=== PATIENT | male | born 1990 | race Caucasian/White ===

== ENCOUNTER 2025-04-01 10:29 | Emergency (ER) | payer MEDICAID, SELFPAY ==
[2025-04-01 10:39] VITALS: BP 141/89; PULSE 97; RESP 18; TEMP 37; O2SAT 97; BMI 21.4
--- NOTE | 2025-04-01 10:51 | PD.EDMEDCL ---
ED Medical Clearance RME/HPI General Chief complaint: Medical Clearance Stated complaint: MEDICAL CLEARANCE Time Seen by Provider: 04/01/25 10:46 Arrival date/time: 04/01/25 10:29 35-year-old male presents to the emergency department today in the custody of the [employer] per officer patient was sent here because he was falling asleep while in intake at long term Limitations: no limitations Related Information Allergies Allergy/AdvReac Type Severity Reaction Status Date / Time No Known Drug Allergies Allergy Unknown Verified 11/21/13 00:49 Review of Systems Review of Systems Systems Reviewed: All systems reviewed, normal except as documented Constitutional Constitutional: Reports system reviewed and no additional complaints, except as documented, Denies fever(s) and Denies headache(s) Eyes Eyes: Reports system reviewed and no additional complaints, except as documented and Denies blurry vision ENT Ears, Nose, Mouth, and Throat: Reports system reviewed and no additional complaints, except as documented, Denies headache(s), Denies nasal congestion and Denies nasal discharge Cardiovascular Cardiovascular: Reports system reviewed and no additional complaints, except as documented, Denies chest pain and Denies dyspnea Respiratory Respiratory: Reports system reviewed and no additional complaints, except as documented, Denies chest congestion, Denies cough and Denies dyspnea Gastrointestinal Gastrointestinal: Reports system reviewed and no additional complaints, except as documented and Denies abdominal pain Integumentary/Breasts Skin/Breast: Reports system reviewed and no additional complaints, except as documented and Denies rash Neurologic Neurologic: Reports system reviewed and no additional complaints, except as documented, Reports as per HPI and Denies headache(s) Past Medical History Past Medical History CARDIAC: Negative Congestive Heart Failure RESPIRATORY: Negative Chronic Obstructive Pulmonary Disease (COPD) GENITOURINARY: Negative Renal Disease ENDOCRINE: Negative Diabetes Mellitus Type 1 or Diabetes Mellitus Type 2 Social History SMOKING STATUS: Current every day smoker ED Exam General Limitations: Present no limitations General appearance: Present alert and in no apparent distress Head Head exam: Present atraumatic Eye Eye exam: Present normal appearance, PERRL and EOMI ENT ENT exam: Present normal exam, normal oropharynx and mucous membranes moist Neck Neck exam: Present normal inspection, full ROM and trachea midline Chest Chest inspection: Present normal inspection and symmetric chest wall rise Respiratory Respiratory exam: Present normal lung sounds bilaterally Cardiovascular Cardiovascular exam: Present regular rate, normal rhythm and normal heart sounds Abdominal Exam Abdominal exam: Present soft and normal bowel sounds Extremities Exam Extremities exam: Present normal inspection and full ROM Back Exam Back exam: Present normal inspection and full ROM Neurological Exam Neurological exam: Present alert, oriented X3, CN II-XII intact, normal gait and reflexes normal; Absent motor sensory deficit Psychiatric Psychiatric exam: Present normal affect and normal mood; Absent depressed, agitated, anxious, flat affect, manic, homicidal ideation or suicidal ideation Skin Skin exam: Present warm, dry, intact and normal color Course Quality Measures none Vital Signs Vital signs: Vital Signs Temperature 98.6 F 04/01/25 10:39 Pulse Rate 97 04/01/25 10:39 Respiratory Rate 18 04/01/25 10:39 Blood Pressure 141/89 H 04/01/25 10:39 Pulse Oximetry (%) 97 04/01/25 10:39 Oxygen Delivery Method Room Air 04/01/25 10:39 Medical Clearance MDM Narrative MDM Narrative:: 35-year-old male presents to the emergency department today in the custody of the [employer] [employer] per officer patient was sent here because he was falling asleep while in intake at long term Per the officer's had the patient in custody since 830 this morning Patient reports has not used heroin since yesterday I asked the patient if he would like Narcan emphatically he stated no Currently patient GCS 15 answers all questions appropriately walks with steady gait vital signs are normal Patient was given food and drink which he ate and drink while he was here Time reevaluation patient is a GCS of 15 Consultation: I have my attending physician to evaluate patient who felt the patient be discharged to long term at this time As the patient is a GCS of 15 walks with steady gait answers all questions appropriately and is without difficulty patient be discharged to long term Patient data External records reviewed:: [facility] previous records Clinical information provided by:: patient Social determinants that could affect healthcare access:: substance use Patient has the following chronic illnesses:: Alcohol and substance abuse How is presenting disease/condition affected by chronic disease/condition?: caused by Evaluation data The following diagnostics were reviewed and interpreted by me:: other (specify) Lab and/or radiology exams considered but not ordered:: Considered not ordered Interpretation Summary: N/A Medications / Prescriptions Medications or Prescriptions considered but not ordered:: Given no meds Medication administrations:: No meds Consultations Consultation(s) initiated? (list below): No Diagnosis Medical Clearance Differential Diagnosis: other (Medical clearance for incarceration) Most likely diagnosis given after review of the tests above:: Heroin abuse alcohol abuse Admission Indicated Admission indicated?: not indicated Admission Request Was there a request for admission?: No Disposition Plan Disposition Plan: Discharge Discharge Attestation Discharge Attestation: The patient and all family members were given an opportunity to ask questions and understood the discharge instructions. Discharge instructions specifically effects, indications for sooner follow up or return to the emergency department, and the expected course of current diagnosis. Patient condition: Stable Discharge Plan Plan Patient Disposition: Snf/Court/Law Discharge Disposition comment: Stable Problem List Clinical Impression: Heroin abuse Patient/Caregiver Discharge Instructions Education Materials: Opioid Use Risks Additional Instructions: Please follow up with your primary care doctor in the next 24-48hrs for any worsening symptoms return here immediately Please refrain from all alcohol and drug abuse as it can kill you Print Language: Frisian SONAM/YOLA Supervising Physician SONAM/YOLA Supervising Physician: dr velez
--- NOTE | 2025-04-01 11:27 | PC.NURSE ---
Patient alert and oriented x4. Patient easily arousable from sleep. patient consumed sandwich, peanut butter and jelly lo crackers and 720ml of juice.
== END 2025-04-01 11:30 ==
LOC: SERX 11:47
PROVIDERS: Emergency Provider Nurse Practitioner Primary Care; PCP Family Medicine
DX: Z02.89 Encounter for other administrative examinations (principal); F11.10 Opioid abuse, uncomplicated
CPT/HCPCS: 99281

== ENCOUNTER 2025-05-13 17:59 | Emergency (ER) | payer MEDICAID, SELFPAY ==
[2025-05-13 18:17] VITALS: PULSE 134; RESP 18; O2SAT 100; BMI 23.6
[2025-05-13 18:28] VITALS: BP 153/85; PULSE 110; RESP 18; TEMP 36.7; O2SAT 100
--- NOTE | 2025-05-13 19:05 | EDNOTE_ITS ---
ED Overdose RME/HPI General Chief Complaint: Overdose Stated Complaint: OVERDOSE Time Seen by Provider: 05/13/25 19:02 Source: patient and EMS Arrival date/time: 05/13/25 17:59 Mode of arrival: EMS Limitations: no limitations RME / HPI complaint: accidental overdose RME / HPI Narrative: This patient is a 35-year-old male who is brought in by EMS due to OD on fentanyl. Patient believes he was utilizing heroin and accidentally took fentanyl. Patient received Narcan in the field when EMS arrived and at time of our evaluation, patient was asymptomatic and states he had no complaints. Patient was mildly hypertensive and tachycardic at arrival. Related Data Allergies Allergy/AdvReac Type Severity Reaction Status Date / Time bee venom protein (honey bee) Allergy Severe Swelling Verified 05/13/25 18:28 of Lip/Tongue/Throat No Known Drug Allergies Allergy Unknown Verified 11/21/13 00:49 Review of Systems Review of Systems Systems Reviewed: All systems reviewed, normal except as documented Past Medical History Past Medical History CARDIAC: Negative Congestive Heart Failure RESPIRATORY: Negative Chronic Obstructive Pulmonary Disease (COPD) GENITOURINARY: Negative Renal Disease ENDOCRINE: Negative Diabetes Mellitus Type 1 or Diabetes Mellitus Type 2 PSYCHO/SOCIAL: Positive Recreational Drug Use Social History SMOKING STATUS: Current some day smoker ED Exam Narrative Physical exam: Patient appeared to be in poor overall health due to extensive illicit drug use. Patient had no complaints and vital signs were reasonable at time of evaluation. General Limitations: Present no limitations General appearance: Present alert Head Head exam: Present atraumatic Eye Eye exam: Present normal appearance, PERRL and EOMI ENT ENT exam: Present normal exam, normal oropharynx and mucous membranes moist Neck Neck exam: Present normal inspection, full ROM and trachea midline Chest Chest inspection: Present normal inspection and symmetric chest wall rise Respiratory Respiratory exam: Present normal lung sounds bilaterally Cardiovascular Cardiovascular exam: Present regular rate, normal rhythm and normal heart sounds Abdominal Exam Abdominal exam: Present soft and normal bowel sounds Extremities Exam Extremities exam: Present normal inspection and full ROM Back Exam Back exam: Present normal inspection and full ROM Neurological Exam Neurological exam: Present alert, oriented X3 and CN II-XII intact Psychiatric Psychiatric exam: Present normal affect and normal mood Skin Skin exam: Present warm, dry, intact and normal color Course Quality Measures none Vital Signs Vital signs: Vital Signs Temperature 98.0 F 12/25/25 18:28 Pulse Rate 110 H 05/13/25 18:28 Respiratory Rate 18 05/13/25 18:28 Blood Pressure 153/85 H 05/13/25 18:28 Pulse Oximetry (%) 100 05/13/25 18:28 Oxygen Delivery Method Room Air 05/13/25 18:28 As noted above Overdose MDM Narrative MDM Narrative:: Spent extensive time discussing the patient's arrival and drug abuse past with the patient. Advised ceasing all illicit drug use immediately and following up with a support group such as Narcotics Anonymous. Advise good hydration and healthy nutrition throughout. Patient is safe for discharge. Patient data External records reviewed:: [facility] previous records Clinical information provided by:: patient Social determinants that could affect healthcare access:: substance use Patient has the following chronic illnesses:: Illicit drug abuse How is presenting disease/condition affected by chronic disease/condition?: caused by Evaluation data The following diagnostics were reviewed and interpreted by me:: other (specify) (None) Lab and/or radiology exams considered but not ordered:: None Interpretation Summary: None Medications / Prescriptions Medications or Prescriptions considered but not ordered:: None Medication administrations:: None Consultations Consultation(s) initiated? (list below): No Diagnosis Overdose Differential Diagnosis: drug overdose Most likely diagnosis given after review of the tests above:: None Admission Indicated Admission indicated?: not indicated Admission Request Was there a request for admission?: No Disposition Plan Disposition Plan: Discharge Discharge Attestation Discharge Attestation: The patient and all family members were given an opportunity to ask questions and understood the discharge instructions. Discharge instructions specifically effects, indications for sooner follow up or return to the emergency department, and the expected course of current diagnosis. Patient condition: Stable Discharge Plan Plan Patient Disposition: HOME (Self Care) Problem List Clinical Impression: Drug overdose Patient/Caregiver Discharge Instructions Education Materials: ED Accidental Ingestion Nontoxic Adult Print Language: Colombian Stand Alone Forms: [employer] Award Info., Patient Portal Info Letter
--- NOTE | 2025-05-13 19:27 | PC.NURSE ---
Patient report received from Hong SMALL. Patient is awake and alert, resting in bed at its lowest position with wheels locked and call light within reach. awaiting on provider's orders. Patient care assumed at this time.
[2025-05-13 21:19] VITALS: BP 136/88; PULSE 92; RESP 18; TEMP 36.7; O2SAT 97
[2025-05-13 21:20] VITALS: PULSE 92; RESP 18; TEMP 36.7; O2SAT 97
== END 2025-05-13 21:23 | disposition home or self-care (01) ==
PROVIDERS: Emergency Provider Emergency Medicine
DX: T40.411A Poisoning by fentanyl or fentanyl analogs, accidental (unintentional), initial encounter (principal); I10 Essential (primary) hypertension; R00.0 Tachycardia, unspecified; F17.200 Nicotine dependence, unspecified, uncomplicated
CPT/HCPCS: 96127; 99281

== ENCOUNTER 2025-05-14 04:14 | Emergency (ER) | payer MEDICAID, SELFPAY ==
[2025-05-14 04:16] VITALS: BMI 28.2
[2025-05-14 04:21] VITALS: BP 150/89; PULSE 117; RESP 15; TEMP 36.5; O2SAT 97
[2025-05-14] MEDS: SODIUM CHLORIDE 0.9% 1000 ML 1,000 ML 999 ML IV (06:05)
[2025-05-14 06:21] LABS: Basophils # (Auto) 0.0 Thou/mm3 (0.0-0.2); Basophils % (Auto) 0 % (0-2.5); Eosinophils # (Auto) 0.2 Thou/mm3 (0.0-0.5); Eosinophils % (Auto) 2 % (0-10); Hematocrit 42.2 % (41.0-53.0); Hemoglobin 13.4 g/dL (13.5-16.0); Immature Granulocytes Auto 0.06 Thou/mm3 (0.00-0.00); Lymphocytes # (Auto) 2.4 Thou/mm3 (1.0-4.8); Lymphocytes % (Auto) 26 % (10-50); Mean Corpuscular HGB Conc 31.8 g/dl (31.0-37.0); Mean Corpuscular Hemoglobin 29.4 pg (25.0-35.0); Mean Corpuscular Volume 93 fL (80-100); Monocytes # (Auto) 1.1 Thou/mm3 (0.0-0.8); Monocytes % (Auto) 12 % (0-12); Neutrophils # (Auto) 5.4 Thou/mm3 (1.8-7.7); Neutrophils % (Auto) 59 % (37-80); Nucleated Red Blood Cell # 0.00 Thou/mm3 (0.00-0.00); Nucleated Red Blood Cell % 0 /100 WBC (0); Platelet Count 507 Thou/mm3 (140-440); RDW Standard Deviation 42.4 fL (35.1-43.9); Red Blood Count 4.56 Miln/mm3 (4.50-5.90); White Blood Count 9.2 Thou/mm3 (3.8-10.6)
[2025-05-14 06:33] LABS: Amphetamine/Methamp Scrn,U Positive (Negative); Barbiturate Screen,Urine Negative (Negative); Benzodiazepines Screen,Urine Negative (Negative); Benzoylecgonine Screen, Ur Negative (Negative); Fentanyl Screen,Urine Positive (Negative); Opiate Screen,Urine Positive (Negative); THC Screen,Urine Negative (Negative)
[2025-05-14 06:41] LABS: Acetaminophen < 2.0 mcg/mL (10.0-20.0); Alcohol, Blood Medical < 3.0 mg/dL (0-10.0); Salicylate < 3.0 mg/dL
--- NOTE | 2025-05-14 06:58 | EDNOTE_ITS ---
ED Overdose RME/HPI General Chief Complaint: Overdose Stated Complaint: OVER DOSE Time Seen by Provider: 05/14/25 04:23 Arrival date/time: 05/14/25 04:14 RME / HPI RME / HPI Narrative: See MDM Related Data Previous Rx's ?Medication ?Instructions ?Recorded naloxone 4 mg/actuation nasal 4 mg intranasal Q2M PRN opioid 05/14/25 spray (Narcan) overdose #2 ea Allergies Allergy/AdvReac Type Severity Reaction Status Date / Time bee venom protein (honey bee) Allergy Severe Swelling Verified 05/14/25 04:16 of Lip/Tongue/Throat No Known Drug Allergies Allergy Unknown Verified 11/21/13 00:49 Review of Systems Review of Systems Systems Reviewed: All systems reviewed, normal except as documented Past Medical History Past Medical History PSYCHO/SOCIAL: Positive Recreational Drug Use Social History SMOKING STATUS: Smoker, status unknown ED Exam Narrative Physical exam: See MDM Course Quality Measures none Orders Category Date Time Status XR chest 1V portable Stat Exams 05/14/25 07:08 Taken Acetaminophen Stat Lab 05/14/25 05:00 Completed Alcohol, Blood Medical Stat Lab 05/14/25 05:00 Completed CBC Stat Lab 05/14/25 05:00 Completed Drug Screen,Urine Stat Lab 05/14/25 05:00 Completed Salicylate Stat Lab 05/14/25 05:00 Completed Sodium Chloride 0.9% 1000 ml [Ns] 1,000 ml Med 05/14/25 05:25 Discontinued IV 999 mls/hr Vital Signs Vital signs: Vital Signs Temperature 97.7 F 05/14/25 04:21 Pulse Rate 117 H 05/14/25 04:21 Respiratory Rate 15 05/14/25 04:21 Blood Pressure 150/89 H 05/14/25 04:21 Pulse Oximetry (%) 97 05/14/25 04:21 Oxygen Delivery Method Room Air 05/14/25 04:21 Overdose MDM Narrative MDM Narrative:: This section includes all my notes and documentations, including HPI, PE, and ED course. Artem Banda MD ? HPI: 35-year-old male brought in by EMS to the emergency department with opiate overdose. Patient was seen yesterday for same. He eventually was discharged and again was found with a drug pipe and paraphernalia near him completely unconscious. EMS was called. They gave 3 rounds of Narcan and the patient woke back up. Patient is having no symptoms now. He absolutely denies suicidal ideation or depression. He says it was completely an accident and that he is a regular opiate user. He denies shortness of breath, chest pain, fevers, shakes, chills, sweats. No further medical complaints ? ROS: All negative except as documented in HPI. ? PE: GENERAL APPEARANCE:? alert and oriented x 4, well-developed, well-nourished, no acute distress VITALS: All vitals were reviewed and the pulse ox is 97% on room air, which is normal according to my interpretation. HEENT: Normocephalic, atraumatic; pupils equal, round, reactive to light; EOMI; mucous membranes pink, moist; oropharynx clear NECK: Supple LUNGS: CTABL; no wheezes, no rales, no rhonchi HEART: Tachycardic rate 110s, regular rhythm; normal S1, S2; no murmurs ABDOMEN: non distended; normal BS;? soft, no tenderness, no guarding, no rebound; no masses, no organomegaly, no hernia?? EXTREMITIES:? atraumatic; no edema NEUROLOGIC: awake; alert and oriented x4; cranial nerves II-XII grossly intact; no focal sensory or motor deficits PSYCHIATRIC:? appropriate mood and affect SKIN: warm, dry, normal color; no rashes ? I reviewed EMS notes. ? I reviewed all diagnostic test results: My interpretation of the chest x-ray is nml diaphragmatic edge, sharp costophreic angles, nml cardiac silhouette, no infiltrates . ? Blood tests and urine test: CBC is unremarkable. UDS positive for opiates, Fentanyl, and Methamphetamine. ? At this point, diagnoses include: Fentanyl poisoning Opiate overdose ? Treatment here included: IV fluids ? Significant improvement noted. ? Recommended outpatient care. Based on my best medical judgment, made decision no further evaluation or treatment indicated at this time. Patient understands and agrees to the customized discharge instructions and printed, see below. ? Discharge instructions from Dr. Banda: It is very important that you fill your prescription for naloxone. This is the nasal spray antidote to opiate overdose. Please fill that prescription and use if necessary. I also gave you some refills on that Please return to the emergency department if you have any worsening or any further medical problems and we will help you. Otherwise you should follow-up with your primary care doctor within the next several days Patient data External records reviewed:: [facility] previous records and EMS form Clinical information provided by:: patient and EMS Social determinants that could affect healthcare access:: substance use Patient has the following chronic illnesses:: No chronic medical hx reported How is presenting disease/condition affected by chronic disease/condition?: no chronic disease Evaluation data The following diagnostics were reviewed and interpreted by me:: lab results and radiology exam(s) Lab and/or radiology exams considered but not ordered:: None Interpretation Summary: As noted above Medications / Prescriptions Medications or Prescriptions considered but not ordered:: None Medication administrations:: Medication Administration History Discontinued Medications Sodium Chloride (Ns) 1,000 mls @ 999 mls/hr IV .Q1H1M ONE Stop: 05/14/25 06:25 Last Infusion: 05/14/25 07:10 Dose: Infused Documented By: Admin: 05/14/25 06:05 Dose: 999 mls/hr Documented By: SM See above Consultations Consultation(s) initiated? (list below): No Diagnosis Overdose Differential Diagnosis: cocaine intoxication, poisoning by opiate or related narcotic, drug overdose and acetaminophen overdose Most likely diagnosis given after review of the tests above:: Fentanyl poisoning Opiate overdose Admission Indicated Admission indicated?: not indicated Admission Request Was there a request for admission?: No Disposition Plan Disposition Plan: Discharge Discharge Attestation Discharge Attestation: The patient and all family members were given an opportunity to ask questions and understood the discharge instructions. Discharge instructions specifically effects, indications for sooner follow up or return to the emergency department, and the expected course of current diagnosis. Patient condition: Stable Discharge Plan Plan Patient Disposition: HOME (Self Care) Discharge Disposition comment: Stable for discharge home Patient condition on transfer: Stable Prescriptions/Referrals Prescriptions/Med Rec: New naloxone [Narcan] 4 mg/actuation spray,non-aerosol 4 mg intranasal Q2M PRN (Reason: opioid overdose) Qty: 2 3RF Rx Instructions: spray 1 dose into ONE nostril; alternate nostrils w each dose until help arrives Referrals: [facility] [Provider Group] - In 1 week Problem List Clinical Impression: Fentanyl poisoning, Opiate overdose Patient/Caregiver Discharge Instructions Discharge Activity: activity as tolerated Education Materials: First Aid: Poisoning, Naloxone Nasal Gerald Steps Additional Instructions: It is very important that you fill your prescription for naloxone. This is the nasal spray antidote to opiate overdose. Please fill that prescription and use if necessary. I also gave you some refills on that Please return to the emergency department if you have any worsening or any further medical problems and we will help you. Otherwise you should follow-up with your primary care doctor within the next several days Print Language: Colombian Stand Alone Forms: [employer]ery Award Info., Patient Portal Info Letter
--- NOTE | 2025-05-14 07:08 | XR_ITS ---
AP upper chest film: This is performed on 05/14/2025 at 7:24 a.m. INDICATION: Tachycardia possible drug overdose FINDINGS: The heart mediastinum lungs and pleural space are clear normal. IMPRESSION: Normal AP semiupright chest x-ray
[2025-05-14 07:42] VITALS: BP 139/89; PULSE 113; RESP 17; O2SAT 97
== END 2025-05-14 08:01 | disposition home or self-care (01) ==
PROVIDERS: Emergency Medicine; Emergency Provider Emergency Medicine
DX: T40.411A Poisoning by fentanyl or fentanyl analogs, accidental (unintentional), initial encounter (principal); R40.20 Unspecified coma
CPT/HCPCS: 36415; 71045; 80307; 80320; 80329; 85025; 96127; 96360; 99283; J7030; G0480